=== PATIENT | female | born 1975 | race African-American/Black ===

== ENCOUNTER 2017-05-09 18:20 | Emergency (ER) | payer OTHER ==
[~2017-05-09] VITALS: Ht 157.5 cm; Wt 62.7 kg
[2017-05-09] MEDS ORDERED: MOTRIN800 MG PO (20:01)
[2017-05-09] MEDS ORDERED: PERCOCET 5/31 TABLET PO (20:01)
[2017-05-09 20:47] VITALS: BP 00/00
== END 2017-05-09 20:50 | disposition home or self-care (01) ==
LOC: EME 18:20
DX: M25.462 Effusion, left knee (principal); M25.561 Pain in right knee; F17.200 Nicotine dependence, unspecified, uncomplicated
CPT/HCPCS: 73564; 99281; 99283